=== PATIENT | female | born 2000 | race African-American/Black ===

== ENCOUNTER 2022-12-17 14:30 | Emergency (ER) | payer OTHER ==
[~2022-12-17] VITALS: Ht 157.5 cm; Wt 58.5 kg
[2022-12-17] MEDS ORDERED: BENZ200C70 PO (15:29)
[2022-12-17] MEDS ORDERED: MUCI600T31 PO (15:29)
[2022-12-17] MEDS ORDERED: dexAMETHasone 4 MG TAB PO ONE (15:30)
[2022-12-17 16:00] VITALS: BP 97/54; TEMP 99.6; O2SAT 98
[2022-12-17 16:02] LABS: RSV AMPLIFICATION NEGATIVE (NEGATIVE)
== END 2022-12-17 16:09 | disposition home or self-care (01) ==
LOC: M ED 14:30
DX: J06.9 Acute upper respiratory infection, unspecified (principal)